=== PATIENT | male | born 1965 | race Caucasian/White ===

== ENCOUNTER → 2022-06-07 14:57 | Outpatient (CLI) | payer OTHER, SELFPAY ==
--- NOTE | 2022-06-08 01:22 | DI.NM.S_ITS ---
DATE OF SERVICE: 06/07/2022 PROCEDURE PERFORMED: Exercise treadmill stress test without imaging. ORDERING PROVIDER: Jenni Castro MD INDICATIONS: The patient is a 56-year-old hypertensive male with a history of ventricular ectopy on monitoring. FINDINGS: 1. The patient was able to exercise for 12 minutes on a standard Taj protocol suggesting very good exercise capacity with an SHYLA of -26%, achieving 12.8 METS. 2. He had a normal heart rate response to exercise, achieving a maximum heart rate of 152 BPM (93% of his predicted maximum). He had a modest hypertensive blood pressure response to exercise with a resting blood pressure of 184/84, increasing to a maximum of 216/90. 3. He had no chest discomfort or other anginal symptoms. 4. His resting ECG showed sinus rhythm with normal ST segments. There were no significant ST-segment shifts or arrhythmias with stress. IMPRESSION: 1. Normal exercise treadmill stress test for ischemia. 2. Very good exercise capacity without angina or arrhythmias. 3. He was moderately hypertensive at rest with a moderate hypertensive blood pressure response to exercise. Arie Wan - TIFFANI/cordell/ronni doc#: [id number]/job#: [id number] dd: 06/07/2022 16:55:00 dt: 06/08/2022 01:11:00 DICTATING /COPIES TO: Luigi Aquino MD; Jenni Castro MD COPIES MNE: TRINA;
== END ==
PROVIDERS: PCP Physician Assistant; Referring Provider Internal Medicine Cardiovascular Disease; Visit Provider Internal Medicine Cardiovascular Disease
DX: I47.20 Ventricular tachycardia, unspecified (principal); I10 Essential (primary) hypertension
CPT/HCPCS: 93017